=== PATIENT | male | born 1995 | race Caucasian/White ===

== ENCOUNTER 2020-11-12 15:50 | Emergency (ER) | payer OTHER ==
[~2020-11-12] VITALS: Ht 185.4 cm; Wt 84.4 kg
--- NOTE | 2020-11-12 16:31 | NUR ---
PT AMBULATORY TO ROOM FROM LOBBY. CHANGED INTO GOWN. MONITORS IN PLACE.
[2020-11-12] MEDS ORDERED: LIDOCAINE-MPF 1%, 5ML ONE ×2 (17:27→18:17)
[2020-11-12] MEDS ORDERED: LIDOCAINE-MPF 1%, 5ML INFIL ONE (17:30)
--- NOTE | 2020-11-12 18:19 | NUR ---
PA & MD AT BS
--- NOTE | 2020-11-12 19:10 | NUR ---
REPORT RECEIVED FROM DIMITRIS GILES.
--- NOTE | 2020-11-12 19:14 | NUR ---
PATIENT AMBULATORY IN ROOM. STEADY GAIT. PATIENT EAGER TO LEAVE ER. DISCHARGE INSTRUCTIONS REVIEWED WITH PATIENT. NO FURTHER QUESTIONS. PRESCRIPTION HANDED DIRECTLY TO PATIENT. REVIEWED IMPORTANCE OF TAKING ENTIRE REGIMEN OF ABX. PATIENT VERBALIZED UNDERSTANDING. NO ACTIVE BLEEDING AT SITE. RIGHT EYE SWOLLEN AND BRUISED. NO VISION CHANGES PER PATIENT. ALL PERSONAL BELONGINGS WITH PATIENT ON DEPARTURE. NO IV PLACED DURING THIS ER VISIT
== END 2020-11-12 19:20 | disposition home or self-care (01) ==
LOC: MERGE 15:50 → ED 19:16
DX: S00.251A Superficial foreign body of right eyelid and periocular area, initial encounter (principal); X58.XXXA Exposure to other specified factors, initial encounter; Y93.9 Activity, unspecified; Y92.89 Other specified places as the place of occurrence of the external cause; Y99.8 Other external cause status
CPT/HCPCS: 10120; 99284; 99285